=== PATIENT | male | born 1985 | race African-American/Black ===

== ENCOUNTER 2018-08-25 13:44 | Emergency (ER) | payer SELFPAY ==
[~2018-08-25] VITALS: Ht 190.5 cm; Wt 117.9 kg
--- NOTE | 2018-08-25 15:15 | RAD ---
Three-view left elbow and three-view left wrist dated 08/25/2018. No comparison available. Clinical data indication: Pain and swelling after fall. FINDINGS: 3 views left elbow show normal bony alignment. No displaced fracture. No fat pad elevation to suggest joint effusion. No acute osseous or articular abnormality. 3 views of left wrist show comminuted intra-articular fracture of the distal radius with mild volar angulation and volar displacement of distal fragments. The distal ulna is intact. There is diffuse soft tissue swelling. Carpal bones are intact. IMPRESSION: 1. Comminuted intra-articular fracture of the distal radius, mildly displaced. 2. No apparent acute fracture at the elbow. Electronically signed by: Ian Encarnacion MD (08/25/2018 3:12 PM) [facility]
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
[2018-08-25] MEDS ORDERED: MORPHINE SULFATE 10 MG/ML VIAL. IM ONE (17:00)
[2018-08-25] MEDS ORDERED: IV NORMAL SALINE 1000ML BAG 1,000 ML IV ONE ×2 (17:00)
[2018-08-25] MEDS ORDERED: fentaNYL PF VIAL 100 MCG/2 ML VIAL IV ONE ×2 (17:15→18:15)
[2018-08-25] MEDS ORDERED: ETOMIDATE 20 MG/10 ML VIAL. IV ONE ×3 (17:15→19:00)
[2018-08-25 17:43] VITALS: BP 141/84
[2018-08-25] MEDS ORDERED: KETAMINE HCL 500 MG/10 ML VIAL. ONE (17:52)
[2018-08-25] MEDS ORDERED: MIDAZOLAM HCL/PF 2 MG/2 ML VIAL. ONE (18:00)
[2018-08-25] MEDS ORDERED: MIDAZOLAM HCL/PF 2 MG/2 ML VIAL. IV ONE (18:15)
[2018-08-25] MEDS ORDERED: KETAMINE HCL 500 MG/10 ML VIAL. IV ONE (18:15)
[2018-08-25] MEDS ORDERED: HYDR-3164 PO (18:32)
[2018-08-25] MEDS ORDERED: HYDROcodone/APAP 5/325MG 1 TAB TABLET PO ONE (19:00)
[2018-08-25 20:26] VITALS: BP 129/66
--- NOTE | 2018-08-25 23:15 | RAD ---
AP and lateral left forearm radiographs 08/25/2018 CLINICAL HISTORY: Post reduction fracture of the distal left radius. AP and lateral digital radiographs of the left wrist were obtained. Comparison is made to radiographs of the left wrist performed earlier today. An external cast has been placed surrounding the left wrist and forearm. An acute comminuted fracture of the distal left radial metaphysis is again seen. There has been interval improvement in the volar displacement and angulation of the fracture fragments. No additional fracture is seen. IMPRESSION: Interval improvement in the alignment of the distal left radial fracture fragments with placement of an external cast as discussed above. Electronically signed by: Timoteo Sanon MD (08/25/2018 11:13 PM) [facility]
== END 2018-08-25 20:26 | disposition home or self-care (01) ==
LOC: ER 13:44
DX: S52.572A Other intraarticular fracture of lower end of left radius, initial encounter for closed fracture (principal); F17.200 Nicotine dependence, unspecified, uncomplicated; V86.96XA Unspecified occupant of dirt bike or motor/cross bike injured in nontraffic accident, initial encounter; Y93.89 Activity, other specified; Y92.410 Unspecified street and highway as the place of occurrence of the external cause; Y99.8 Other external cause status
CPT/HCPCS: 25605; 73080; 73090; 73110; 99285; J2250; J2270; J3010; J3490; J7030; 99153; 99155